=== PATIENT | female | born 2000 | race Caucasian/White ===

== ENCOUNTER 2021-06-18 10:07 | Emergency (ER) | payer OTHER ==
[2021-06-18 18:36] LABS: SARS-CoV-2 PCR by NAA DETECTED (NotDetected)
== END 2021-06-18 11:15 | disposition home or self-care (01) ==
LOC: CSHERS 10:07
DX: U07.1 COVID-19 (principal); H66.91 Otitis media, unspecified, right ear; H72.91 Unspecified perforation of tympanic membrane, right ear; I10 Essential (primary) hypertension
CPT/HCPCS: 99284; U0003; U0005